=== PATIENT | male | born 1975 | race Caucasian/White ===

== ENCOUNTER 2020-09-14 21:22 | Emergency (ER) | payer BC ==
[~2020-09-14 21:22] MED LIST: TORADOL 10 MG T10 MG PO; ZOFRAN4 MG PO
== END 2020-09-14 21:51 | disposition left against medical advice (07) ==
LOC: ER1 21:22
DX: Z53.21 Procedure and treatment not carried out due to patient leaving prior to being seen by health care provider (principal)

== ENCOUNTER 2020-12-21 16:02 | Emergency (ER) | payer BC ==
[2020-12-21 16:45] LABS: RED BLOOD COUNT 5.33 M/UL (4.20-5.50); WHITE BLOOD COUNT 11.1 K/UL (4.5-11.0)
[2020-12-21 17:07] LABS: BUN/CREATININE RATIO 17 (0-10)
[2020-12-21] MEDS ORDERED: ZOFRAN ODT 4 MG4 MG SL (19:24)
== END 2020-12-21 20:08 | disposition home or self-care (01) ==
LOC: ER1 16:02
PROVIDERS: Student in an Organized Health Care Education/Training Program
DX: B34.9 Viral infection, unspecified (principal); F17.210 Nicotine dependence, cigarettes, uncomplicated; Z88.0 Allergy status to penicillin; Z20.822 Contact with and (suspected) exposure to COVID-19
CPT/HCPCS: 71045; 80053; 81001; 82550; 82553; 83874; 84484; 85025; 93005; 99285; U0002

== ENCOUNTER → 2021-07-19 | Outpatient (CLI) | payer BC ==
[~2021-07-19] MED LIST changes: +ZOFRAN ODT 4 MG4 MG SL
[2021-07-19 09:04] LABS: HEMOGLOBIN 17.5 gm/dl (14.0-17.5); RED BLOOD COUNT 5.55 M/UL (4.20-5.50); WHITE BLOOD COUNT 6.3 K/UL (4.5-11.0)
[2021-07-19 09:32] LABS: BUN/CREATININE RATIO 19 (0-10)
[2021-07-20 07:10] LABS: VITAMIN D, 25-HYDROXY 29.6 ng/mL (30.0-100.0)
[2021-07-20 08:14] LABS: TRIIODOTHYRONINE (T3) 111 ng/dL (71-180)
[2021-07-20 11:14] LABS: INSULIN 7.6 uIU/mL (2.6-24.9)
[2021-07-21 14:19] LABS: TESTOSTERONE, SERUM 549 ng/dL (264-916)
== END ==
LOC: LAB 08:32
PROVIDERS: Nurse Practitioner Family
DX: Z00.01 Encounter for general adult medical examination with abnormal findings (principal); Z13.29 Encounter for screening for other suspected endocrine disorder; Z12.5 Encounter for screening for malignant neoplasm of prostate; E55.9 Vitamin D deficiency, unspecified; D51.9 Vitamin B12 deficiency anemia, unspecified; R53.83 Other fatigue; R73.09 Other abnormal glucose; R07.9 Chest pain, unspecified
CPT/HCPCS: 36415; 80053; 80061; 82550; 82553; 82607; 83036; 84153; 84402; 84403; 84436; 84439; 84443; 84480; 84481; 84484; 85025

== ENCOUNTER → 2021-08-15 | Outpatient (CLI) | payer BC ==
[2021-08-17 08:14] LABS: THYROXINE (T4) 5.4 ug/dL (4.5-12.0)
== END ==
LOC: LAB 15:36
PROVIDERS: Nurse Practitioner Family
DX: Z13.29 Encounter for screening for other suspected endocrine disorder (principal); E03.9 Hypothyroidism, unspecified
CPT/HCPCS: 36415; 84436; 84439; 84443; 84480; 84481